=== PATIENT | male | born 1995 | race Caucasian/White ===

== ENCOUNTER → 2020-03-26 | Outpatient (CLI) | payer OTHER, BC ==
[~2020-03-26] MED LIST: ACHD5005 PO
--- NOTE | 2020-03-28 07:57 | Diagnostic Imaging Report ---
EXAMINATION: Ultrasound scrotum on 03/26 INDICATION: Testicular abnormality Right testicle measures 4.6 x 2.2 x 3.0 cm. The left testicle measures 3.7 x 1.9 x 2.7 cm. Both testes show homogeneous echotexture. No discrete testicular mass is detected. There is blood flow to both testes. Epididymis are unremarkable apart from a 2 mm cyst involving the right epididymal head. No hydrocele or varicocele is identified. IMPRESSION: 1. No evidence of testicular mass or vascular compromise. 2. A tiny right epididymal head cyst. Dictated by: Dictated on workstation # [id number]
== END ==
LOC: RAD 08:05
PROVIDERS: ATTEND Family Medicine
DX: N50.89 Other specified disorders of the male genital organs (principal)
CPT/HCPCS: 76870